=== PATIENT | female | born 1980 | race Hispanic/Latino ===

== ENCOUNTER → 2017-12-21 | Day surgery (SDC) | payer OTHER ==
[~2017-12-21] MED LIST: DEXAMETHASONE SOD PHOS INJ 4 MG/ML VIAL ONE; FENTANYL CITRATE/PF 100MCG/2 ML INJ ONE; LIDOCAINE HCL 2% LOCAL INJ 5 ML SDV VIAL INJ ONE; METHYLERGONOVINE MALEATE 0.2 MG/ML AMP ONE; MIDAZOLAM HCL 2 MG/2 ML VIAL ONE; ONDANSETRON HCL INJ 2 MG/ML VIAL ONE; PROPOFOL IV EMULSION 10 MG/ML 20 ML VIAL ONE; SEVOFLURANE INHAL SOLN 250 ML PEN BTL ONE
[2017-12-21 12:33] LABS: BASOPHILS # (AUTO) 0.1 (0.0-0.1); BASOPHILS % 0.6 % (0.0-1.0); EOSINOPHILS # (AUTO) 0.2 (0.0-0.4); EOSINOPHILS % 1.6 % (0.0-6.0); HEMATOCRIT 39.9 % (34.2-44.1); HEMOGLOBIN 13.4 g/dL (12.0-16.0); LYMPHOCYTES # (AUTO) 3.4 (1.0-3.2); LYMPHOCYTES % 33.9 % (18.0-39.1); MEAN CORPUSCULAR HEMOGLOBIN 28.8 pg (28-32); MEAN CORPUSCULAR HGB CONC 33.6 g/dL (31-35); MEAN CORPUSCULAR VOLUME 85.6 fL (81-99); MONOCYTES # (AUTO) 0.5 (0.2-0.8); NEUTROPHILS # (AUTO) 5.9 (2.1-6.9); NEUTROPHILS % 58.6 % (38.7-80.0); PLATELET COUNT 270 x10e3/uL (140-360); RED BLOOD COUNT 4.66 x10e6/uL (3.6-5.1); RED CELL DISTRIBUTION WIDTH 13.2 % (11.7-14.4)
--- NOTE | 2017-12-21 17:24 | Operative Report ---
DATE OF PROCEDURE: December 21, 2017 PREOPERATIVE DIAGNOSIS: Incomplete . POSTOPERATIVE DIAGNOSIS: Incomplete . PROCEDURE: Suction evacuation of retained products of conception. COMPLICATIONS: None. ESTIMATED BLOOD LOSS: Minimal. Patient was taken to the OR, given general anesthesia and the patient was prepped and draped in normal sterile fashion and placed in the dorsal lithotomy position. After examination under anesthesia, the uterus was anteverted, mobile, no adnexal masses. Cervix was slightly dilated and admitted suction curette size 8, which was connected to the vacuum. Vacuum was created and suction evacuation of the products of conception was performed. Suction curette was removed and sharp curettings obtained, and suction curette was reintroduced to remove any debris. The pelvic cavity was found to be empty. The patient tolerated the procedure well. Laps, instrument, needle counts were correct x2 at the end of the procedure. Job#: [id number]
== END | disposition home or self-care (01) ==
LOC: OR 11:50
PROVIDERS: ATTEND Obstetrics & Gynecology
DX: O03.4 Incomplete spontaneous abortion without complication (principal); O73.0 Retained placenta without hemorrhage
CPT/HCPCS: 36415; 59812; 84702; 85025; 88305; J1100; J2001; J2210; J2250; J2405